=== PATIENT | female | born 1965 | race Caucasian/White ===

== ENCOUNTER 2024-01-12 23:30 | Emergency (ER) | payer OTHER ==
[2024-01-12 23:35] VITALS: BP 157/77; PULSE 98; RESP 20; TEMP 97.6; BMI 30.3
[2024-01-13] MEDS ORDERED: valACYclovir HCL 500 MG TABLET (FP) ONE (01:11)
[2024-01-13] MEDS: valACYclovir HCL 500 MG TABLET (FP) PO ONE (01:17)
== END 2024-01-13 01:18 | disposition home or self-care (01) ==
LOC: JER 23:30
DX: R21 Rash and other nonspecific skin eruption (principal); B02.9 Zoster without complications
CPT/HCPCS: 99283-25